=== PATIENT | female | born 1975 | race Caucasian/White ===

== ENCOUNTER → 2018-05-24 08:14 | Outpatient (CLI) | payer MEDICAID ==
[2012-03-21 08:38] VITALS: BMI 32.9
== END | disposition home or self-care (01) ==
LOC: D.HCCARDIO 08:14
DX: I20.9 Angina pectoris, unspecified (principal)

== ENCOUNTER 2019-01-02 05:00 | Inpatient (IN) | payer MEDICAID ==
[2019-01-01 12:37] LABS: BASOPHILS 0.3 % (0-2); EOSINOPHILS 1.3 % (0-7); HEMATOCRIT 41.5 % (36.0-48.0); HEMOGLOBIN 13.4 g/dL (12-16); IMMATURE GRANULOCYTES 0.3 % (0-5); LYMPHOCYTES 18.3 % (15-50); MCH 27.9 pg (26.0-34.0); MCHC 32.3 g/dL (31.0-37.0); MCV 86.5 fL (80.0-100.0); MEAN PLATELET VOLUME 10.1 fL (7.4-10.4); MONOCYTES 3.9 % (2-11); NEUTROPHILS 75.9 % (40-80); PLATELET COUNT 272 10x3/uL (130-400); RDW 16.5 % (11.5-14.5); WBC 11.9 10x3/uL (4.8-10.8)
[2019-01-01 12:49] LABS: CALC OSMOLALITY 274 mosm/kg (275-300); CALCIUM 9.6 mg/dL (8.5-10.1); CARBON DIOXIDE 25.9 mmol/L (21.0-32.0); CHLORIDE - SERUM 96 mmol/L (98-107); CREATININE - SERUM 0.8 mg/dL (0.6-1.3); POTASSIUM - SERUM 3.9 mmol/L (3.5-5.1); SODIUM 133 mmol/L (136-145); UREA NITROGEN 11 mg/dL (7-18); eGFR NON AFRICAN AMERICAN 83 mL/min (90-120)
[2019-01-01 12:50] LABS: GLUCOSE 271 mg/dL (74-106)
[~2019-01-02] VITALS: Ht 167.6 cm; Wt 94.8 kg
[2019-01-02] VITALS (10 sets, daily range): BP systolic 93–109; BP diastolic 50–74; BMI 33.9; BMI 33.8
[~2019-01-02 05:00] MED LIST: GLUCOPHAGE XR750 MG PO; LOSARTAN/HCTZ PO; NORVASC5 MG PO; OXYBUTYNIN CHLOR5 MG PO; TENORMIN25 MG PO
[2019-01-02 06:01] LABS: HCG URINE NEGATIVE (NEGATIVE)
--- NOTE | 2019-01-02 11:57 | NUR ---
DISCHARGE FROM PACU PER ANESTHESIA, FSBG TRENDING DOWN. 322 AT [phone]
--- NOTE | 2019-01-02 12:14 | NUR ---
RECEIVED PT VIA BED FROM RR, PT TO ROOM 1220, VS INITIATED, IV IN RIGHT WRIST INTACT WITH NO REDNESS OR EDEMA, NS TO PUMP TO KVO AT THIS TIME, PT CLEANED UP WITH WET WARM WASH CLOTHS, WHITE CHUX CHANGED, EMPTIED 400 MLS OF METHYLINE BLUE URINE FROM GIL CATH, O2 AT 4L VIA NC, SCD'S CONNECTED AND WORKING PROPERLY, PT INST ON AND DEMONSTRATED I.S. WITH GOOD EFFORT, INFORMED PT THAT I WILL BE RIGHT BACK, PT VERBALIZES UNDERSTANDING, SPOUSE AT BEDSIDE
--- NOTE | 2019-01-02 12:24 | NUR ---
DR INMAN CALLS UNIT REGARDING PT, ORDERS RECEIVED TO DUE FSBS Q1H, LOW RESIDUAL SLIDING SCALE Q2H, CALL HER WITH ANY QUESTIONS OR CONCERNS, ORDERS READ BACK AND VERIFIED
--- NOTE | 2019-01-02 13:01 | NUR ---
NEW BAG OF LR HUNG PER MD ORDERS, SEE EMAR
--- NOTE | 2019-01-02 13:05 | NUR ---
ASSESSMENT CONTINUED PER FLOW SHEET, [employer] ORALIA WITH LARGE DRESSING CDI WITH NO DRAINAGE NOTED, ICE PACK TO ABD, SMALL SPLINT PILLOW PROVIDED, PT ORIENTED TO ROOM, BED IN LOW POSITION, SIDE RAILS X 2, CALL LIGHT IN REACH, SPOUSE AT BEDSIDE
--- NOTE | 2019-01-02 13:44 | NUR ---
PT RATES INC PAIN 10/10, ADM MORPHINE DILUTED IN 5MLS OF NS, SIVP OVER 2.5 MINS, SEE EMAR
--- NOTE | 2019-01-02 13:56 | NUR ---
DR INMAN CALLS UNIT, REPORT OF PT'S FSBS, VERIFIED ORDERS, DR INMAN REPORTS THAT SHE WILL COME SEE PT THIS AFTERNOON, CALL HER WHEN BLOOD SUGAR IS BELOW 200, AND THAT SHE WILL PROBABLY CHANGE THE FSBS Q1H TO Q4H, AND THAT YOU CAN CALL HER TONIGHT WITH ANY CONCERNS OR QUESTIONS
--- NOTE | 2019-01-02 14:02 | NUR ---
PT AWAKE, PT INFORMED THAT I SPOKE TO DR INMAN, PT VERBALIZES UNDERSTANDING, ADM INSULIN PER THIS RN AND WESLY CAST, RN, PT REQUESTS SNACK, DENIES ANY NAUSEA AT THIS TIME, SPOUSE AT BEDSIDE
--- NOTE | 2019-01-02 14:10 | NUR ---
PT SERVED H20 AND CHICKEN BROTH, DENIES FURTHER NEEDS
--- NOTE | 2019-01-02 15:11 | NUR ---
PT RESTING WITH EYES CLOSED, AROUSES TO SOFT VERBAL STIMULATION, OBTAINED FSBS, PT DENIES ANY NAUSEA AFTER DRINKING H20 AND CHICKEN BROTH, PT REQUESTED AND SERVED DIET DR NGUYEN, SCD'S CONTINUE ON AND WORKING PROPERLY, PT DENIES FURTHER NEEDS, SPOUSE AT BEDSIDE
--- NOTE | 2019-01-02 16:00 | NUR ---
VS OBTAINED AND I&O'S COLLECTED
--- NOTE | 2019-01-02 16:18 | NUR ---
THIS RN AND GIOVANNI ROACH, RN ADM INSULIN PER MD ORDERS, SEE EMAR, ADM TORADOL SIVP PER MD ORDERS, INFORMED PT THAT I WILL CALL DR INMAN TO INFORM HER OF BS
--- NOTE | 2019-01-02 16:30 | NUR ---
DR INMAN NOTIFIED, REPORT OF FSBS AND OUTPUT, ORDERS RECEIVED, READ BACK AND VERIFIED
--- NOTE | 2019-01-02 16:55 | NUR ---
DR INMAN TO ROOM
--- NOTE | 2019-01-02 17:08 | NUR ---
NS BOLUS STARTED PER MD ORDERS, SEE EMAR, DR INMAN OUT OF ROOM AT THIS TIME, PT RATES INC PAIN 09/10, INFORMED PT THAT I WILL ADM PAIN MED WHEN DUE, PT VERBALIZES UNDERSTANDING, DENIES NEEDS AT THIS TIME
--- NOTE | 2019-01-02 18:10 | NUR ---
ADM MORPHINE PER MD ORDERS, SEE EMAR, PT DENIES FURTHER NEEDS, SPOUSE AT BEDSIDE
--- NOTE | 2019-01-02 18:50 | NUR ---
PT AROUSES TO ME IN ROOM, RATES INC PAIN 5/, SCD'S CONTINUE ON AND WORKING PROPERLY, DENIES NEEDS AT THIS TIME, SPOUSE AT BEDSIDE
--- NOTE | 2019-01-02 19:00 | NUR ---
SHIFT REPORT TO ON COMING SHIFT
--- NOTE | 2019-01-02 19:10 | NUR ---
PM ASSESSMENT COMPLETE CHARTED ON FLOWSHEET. PT RATES PAIN AT 5/10 TO INCISION SITE, NEW ICE BAG PLACED AT SITE. DRESSING C/D/I. SCDS ON. NS BOLUS COMPLETED, LR AT 125 RESTARTED. IV PATENT. STAT LOCK REPLACED ON LEFT UPPER LEG, 120CC LIGHT GREEN URINE EMPTIED FROM BAG. THIS RN ENCOURAGED PT TO DRINK FLUIDS TO PROMOTE URINE OUTPUT. PT STATED SHE IS USING INCENTIVE SPIROMETER DURING WAKE HOURS. ENCOURAGED PT TO TURN, COUGH AND DEEP BREATH. FAMILY AT BEDSIDE. PT DENIES ALL OTHER NEEDS AT THIS TIME. SRUPX2, CALL LIGHT AND PHONE WITHIN REACH.
--- NOTE | 2019-01-02 20:30 | NUR ---
FSBS 132, NO INSULIN NEEDED AT THIS. SEE EMAR
--- NOTE | 2019-01-02 21:30 | NUR ---
PT RATES PAIN AT INCISION SITE AT 8, SEE EMAR FOR RESORT HOST. NEW BAG OF LR HUNG AT THIS TIME. 150CC LIGHT GREEN URINE EMPTIED FROM GIL BAG. PT POSITIONED RIGHT SIDE. ENCOURAGED TO COUGH AND DEEP BREATH AND USE OF INCENTIVE SPIROMETER. PT DENIES ALL OTHER NEEDS AT THIS TIME. FAMILY AT BEDSIDE. SRUPX2, CALL LIGHT AND PHONE WITHIN REACH.
--- NOTE | 2019-01-02 22:05 | NUR ---
ROUNDING COMPLETED BY THIS RN. PT ASLEEP, EASILY AROUSED. PT STATES PAIN IS NOW A 2/10, PAIN MEDICATION EFFECTIVE. PT DENIES ALL OTHER NEEDS AT THIS TIME. SRUPX2, CALL LIGHT AND PHONE WITHIN REACH.
[2019-01-03 00:10] VITALS: BP 104/70
--- NOTE | 2019-01-03 00:10 | NUR ---
ROUNDING COMPLETED BY THIS RN. FSBS 156, 2 UNITS INSULIN ADMINISTERED, SEE EMAR. VSS. PT REQUESTED CHICKEN BROTH, PROVIDED BY THIS RN. DENIES NAUSEA WITH CLEAR LIQUID DIET. PT POSITIONED TO LEFT SIDE, WEAK COUGH, ENCOURAGED TO DEEP BREATH AND USE INCENTIVE SPIROMETER. PT C/O INCISION PAIN. THIS RN EXPLAINED NEXT DOSE OF PAIN MED DUE AT 2AM, PT STATED UNDERSTANDING. NEW ICE PACK APPLIED TO INCISION AREA. FAMILY AT BEDSIDE. SRUPX2, CALL LIGHT AND PHONE WITHIN REACH.
--- NOTE | 2019-01-03 02:31 | NUR ---
ROUNDING COMPLETED BY THIS RN. PT C/O PAIN AT INICISION SITE 10/10. SEE EMAR FOR MORPHINE ADMIN. 150CC LIGHT GREEN URINE EMPTIED FROM GIL. PT DENIES ALL OTHER NEEDS AT THIS TIME. SRUPX2, CALL LIGHT AND PHONE WITHIN REACH.
--- NOTE | 2019-01-03 03:20 | NUR ---
ROUNDING COMPLETED BY THIS RN. PT SLEEPING WITH FAMILY AT BEDSIDE. RESPIRATIONS EVEN AND UNLABORED, NO DISTRESS NOTED. SRUPX2, CALL LIGHT AND PHONE WITHIN REACH.
[2019-01-03 04:00] VITALS: BP 94/62
--- NOTE | 2019-01-03 04:33 | NUR ---
ROUNDING COMPLETED BY THIS RN. PT C/O PAIN AT [facility] SITE 10/10, SEE EMAR FOR TORADOL ADMIN. FSBS 168, 2 UNITS INSULIN GIVEN. VSS. TEMP OF 99.2, ENCOURAGED TO TURN, COUGH, AND DEEP BREATH AND USE OF INCENTIVE SPIROMETER DURING WAKING HOURS. PT DENIES ALL OTHER NEEDS AT THIS TIME. SRUPX2, CALL LIGHT AND PHONE WITHIN REACH.
--- NOTE | 2019-01-03 05:00 | NUR ---
ROUNDING COMPLETED BY THIS RN. PT SLEEPING, RESPIRATIONS EVEN AND UNLABORED, NO DISTRESS NOTED. SRUPX2, CALL LIGHT AND PHONE WITHIN REACH.
--- NOTE | 2019-01-03 06:16 | NUR ---
ROUNDING COMPLETED BY THIS RN. NEW BAG OF LR HUNG AT 125MLS/HR. GIL EMPTIED WITH 200CC LIGHT GREEN URINE. PT RESTING QUIETLY. DENIES ALL NEEDS AT THIS TIME. FAMILY AT BEDSIDE. SRUPX2, CALL LIGHT AND PHONE WITHIN REACH.
--- NOTE | 2019-01-03 07:00 | NUR ---
SBAR HANDOFF RECEIVED FROM Jer ROD RN. PATIENT REMAINS STBLE IN BED WITH NO SIGNS OF RESP DISTRESS; 02 CONT AT 2L/M PER NASAL CANNULA. IV PATENT TO RIGHT HAND. GIL WITH SCANT URINE IN BAG AND TUBING. ABD DSG CDI. S.O. AT BEDSIDE.
[2019-01-03 07:20] VITALS: BP 97/72
--- NOTE | 2019-01-03 07:20 | NUR ---
PATIENT AWAKE AND ASKING FOR PAIN MED. O2 SAT 94-95% WITH O2 CONT AT 2L/MIN PER NASAL CANNULA. BBS = AND CTA. BOWEL SOUNDS PRESENT. BED MOBILITY MINIMAL. SKIN WARM DRY AND PINK. SCD BLE ON/INTERMITTENT. GIL WITH CLEAR LIGHT GREENISH BLUE URINE. FERRARA. IV TO RIGHT HAND INTACT WITH SWELLING NOTED TO RIGHT HAND AND ARM BUT WITH GOOD BLOOD RETURN. LR CONT AT 125ML/HR PER IV PUMP; NO REDNESS OR DRNG AT SITE. ABD DSG CDI.
--- NOTE | 2019-01-03 07:50 | NUR ---
DR Rosie INMAN AT BEDSIDE AND STATES OK TO DC O2, GIVE 1L NACL BOLUS IV THEN DC CATH IF UOP ADEQUATE AFTER 1 HR; TO SHOWER AND TO WALK IN HALLS. DR INMAN REMOVED ABD DSG NOTING LOGAN INTACT WITH NO REDNESS, SWELLING, DRNG OR FEVER NOTED.
[2019-01-03 07:52] LABS: BASOPHILS 0.3 % (0-2); EOSINOPHILS 0.7 % (0-7); HEMATOCRIT 33.3 % (36.0-48.0); IMMATURE GRANULOCYTES 0.3 % (0-5); LYMPHOCYTES 14.9 % (15-50); MCH 27.8 pg (26.0-34.0); MCHC 30.6 g/dL (31.0-37.0); MEAN PLATELET VOLUME 10.1 fL (7.4-10.4); MONOCYTES 5.6 % (2-11); NEUTROPHILS 78.2 % (40-80); RDW 17.1 % (11.5-14.5); WBC 11.9 10x3/uL (4.8-10.8)
[2019-01-03 07:54] LABS: HEMOGLOBIN 10.2 g/dL (12-16); MCV 90.7 fL (80.0-100.0); PLATELET COUNT 205 10x3/uL (130-400); RBC 3.67 10x6/uL (4.00-5.40)
--- NOTE | 2019-01-03 09:15 | NUR ---
CATH REMOVED NOTING 100ML IN TUBING AND BAG. IV SALINE LOCKED. ASSISTED TO SHOWER THEN TO CHAIR TO EAT REG DIET BREAKFAST. BEATRIZ WELL.
[2019-01-03 10:17] LABS: ANION GAP 13.5 mmol/L (8-16); CARBON DIOXIDE 24.9 mmol/L (21.0-32.0); CREATININE - SERUM 0.9 mg/dL (0.6-1.3); POTASSIUM - SERUM 3.4 mmol/L (3.5-5.1)
--- NOTE | 2019-01-03 11:30 | NUR ---
VOIDED 100ML IN HAT IN TOILET. UP AND ABOUT IN ROOM. S.O. AT BEDSIDE.
--- NOTE | 2019-01-03 12:00 | NUR ---
SITTING UP IN CHAIR FOR LUNCH. NO SIGNS OF DISTRESS.
[2019-01-03 12:30] VITALS: BP 115/69
--- NOTE | 2019-01-03 14:00 | NUR ---
VOIDED 100ML LIGHT GREEN URINE. COMPLAINS OF GAS PAIN. STATES SHE HAS PASSED GAS RECTALLY A FEW TIMES TODAY
--- NOTE | 2019-01-03 14:15 | NUR ---
AMBULATING IN HALLS > 400 FT. BEATRIZ WELL. REPORTS PASSAGE OF GAS RECTALLY. NO SIGNS OF DISTRESS.
--- NOTE | 2019-01-03 15:15 | NUR ---
REMAINS STABLE. NO SIGNS OF DISTRESS. UP AND ABOUT IN ROOM. REPORTS PASSAGE OF GAS RECTALLY. FAMILY MEMBER AT BEDSIDE. DENIES NAUSEA. BEATRIZ REG DIET WELL.
--- NOTE | 2019-01-03 16:45 | NUR ---
VOIDED 200ML LIGHT GREENISH URINE. INSTRUCTED TO CONTINUE VOIDING IN RECEPTACLE UNTIL VOIDING AMT'S ARE INCREASED. UP AND ABOUT IN ROOM AND COPPOLA. COMPLAINS OF GAS PAIN.
--- NOTE | 2019-01-03 16:45 | NUR ---
phoned valerie [place]ccaule[place] in [place] and she states that will need more specific md for consult for internal med. report of this to dr berkowitz and she states to call geovanny godl md. spoke with valerie mccauley in [place] again and she states that would be dr vega. pt states that her family practive md is in [facility]. and does not practice here.
--- NOTE | 2019-01-03 16:58 | NUR ---
notified dr vega of consult. report given -he states he will send nurse practitioner over to see her and he will see her within hour or so.
--- NOTE | 2019-01-03 18:00 | NUR ---
DR COBOS TO BEDSIDE. UPDATED ON PATIENT CONDITION. PATIENT REMAINS STABLE WITH NO SIGNS OF DISTRESS. SITTING UP IN BED VISITING WITH VISITORS
--- NOTE | 2019-01-03 18:00 | NUR ---
DR DEL ROSARIO AT BEDSIDE. UPDATED ON INFANT CONDITION.
--- NOTE | 2019-01-03 18:40 | NUR ---
PATIENT COMPLAINS OF IV RIGHT HAND/WRIST HURTING. SALINE LOCK DISCONTINUED; NO REDNESS OR DRNG AT SITE; MILD SWELLING TO HAND AND LOWER ARM; 1 MIN PRESSURE HELD THEN BANDAID APPLIED.
[2019-01-03 19:30] VITALS: BP 111/69
--- NOTE | 2019-01-03 19:30 | NUR ---
PM ASSESSMENT COMPLETE AT CHARTED ON FLOWSHEET. PT RATES PAIN AT INICISION SITE 10/10, SEE EMAR FOR WORKFORCE PLANNER. PT SITTING ON COUCH WATCHING TV WITH FAMILY, SCDS OFF, PT STATES USING INCENTIVE SPIROMETER. FSBS 246, 2 UNITS GIVEN PER SLIDING SCALE. INCISION COVERED WITH CLARITZA PAD, NO DRAINAGE, NO SIGNS/SYMPTOMS OF INFECTION TO INCISION NOTED. ICE PROVIDED AT PT REQUEST. EDUCATED PT ON SAVING URINE FOR THIS RN TO OBSERVE, PT STATES UNDERSTANDING. SRUPX2, CALL LIGHT AND PHONE WITHIN REACH.
--- NOTE | 2019-01-03 20:40 | NUR ---
PT IN WHEELCHAIR IN HALLWAY. PT RATES PAIN 5/10 AT INCISION SITE. STATES PAIN MED WAS EFFECTIVE. DENIES ALL OTHER NEEDS AT THIS TIME.
--- NOTE | 2019-01-03 21:22 | NUR ---
ROUNDING COMPLETED BY THIS RN. PT REQUESTS NICOTINE PATCH. SEE EMAR FOR PATTERNMAKER PLASTER. PT ON COUCH WATCHING TV WITH FAMILY. RATES PAIN AT INICISION SITE 06/10. FRESH ICE PROVIDED AT PT REQUEST. THIS NURSE ENCOURAGED USE OF INCENTIVE SPIROMETER.
--- NOTE | 2019-01-03 22:14 | NUR ---
PT RATES PAIN AT 3/10. PT RESTING IN BED WITH FAMILY AT BEDSIDE. DENIES ALL OTHER NEEDS AT THIS TIME. SRUPX2, CALL LIGHT AND PHONE WITHIN REACH.
[2019-01-03 23:30] VITALS: BP 105/65
--- NOTE | 2019-01-03 23:30 | NUR ---
PT IN BED RESTING. VSS. URINE COLLECTION EMPTIED, 200CC LIGHT GREEN. PT C/O INCISION PAIN AT 8/10, SEE EMAR FOR PAIN SALES ENGAGEMENT MANAGER. FSBS 194, 2 UNITS ADMIN PER SLIDING SCALE. ENCOURAGED PT TO CONTINUE INCENTIVE SPIROMETER DURING WAKE HOURS, PT STATED UNDERSTANDING. CHICKEN BROTH PROVIDED AT PT REQUEST. SCDS ON. PT DENIES ALL OTHER NEEDS. FAMILY AT BEDSIDE. SRUPX2, CALL LIGHT AND PHONE WITHIN REACH.
--- NOTE | 2019-01-04 00:48 | NUR ---
ROUNDING COMPLETED BY THIS RN. PT SLEEPING. RESPIRATIONS EVEN AND UNLABORED. SRUPX2, CALL LIGHT AND PHONE WITHIN REACH.
--- NOTE | 2019-01-04 02:15 | NUR ---
ROUNDING COMPLETED BY THIS RN. PT SLEEPING. RESPIRATIONS EVEN AND UNLABORED, NO DISTRESS NOTED. FAMILY AT BEDSIDE. SRUPX2, CALL LIGHT AND PHONE WITHIN REACH.
--- NOTE | 2019-01-04 04:18 | NUR ---
ROUNDING COMPLETED BY THIS RN. PT C/O OF PAIN IN ABDOMEN 11/10, SEE EMAR. ICE WATER PROVIDED AT PT REQUEST. FBSB 195, 2 UNIT GIVEN PER SLIDING SCALE, SEE EMAR. FAMILY AT BEDSIDE. PT DENIES ALL OTHER NEEDS AT THIS TIME. SRUPX2, CALL LIGHT AND PHONE WITHIN REACH.
--- NOTE | 2019-01-04 05:16 | NUR ---
ROUNDING COMPLETED BY THIS RN. PT RATES ABDOMINAL PAIN AT 4/10, SEE EMAR FOR TORADOL ADMIN. 250 LIGHT GREEN URINE EMPTIED. DRESSING C/D/I. FAMILY AT BEDSIDE. PT DENIES ALL OTHER NEEDS AT THIS TIME. SRUPX2, CALL LIGHT AND PHONE WITHIN REACH.
--- NOTE | 2019-01-04 06:11 | NUR ---
ROUNDING COMPLETED BY THIS RN. PT SLEEPING. RESPIRATIONS EVEN AND UNLABORED. FAMILY AT BEDSIDE. SRUPX2, CALL LIGHT AND PHONE WITHIN REACH.
--- NOTE | 2019-01-04 08:00 | NUR ---
FSBS 196, 2 UNITS REGULAR INSULIN GIVEN SEEN ON EMAR. PT COMPLAINS OF ABDOMINAL PAIN THAT SHE STATES IS "JUST ABOVE INCISION" ENCOURAGED HER TO WALK TO HELP PASS GAS, SHE STATES SHE HAS BEEN UP WALKING BUT NOT OUT OF HER ROOM. RATES PAIN AT 8/10, PAIN MED GIVEN REQUESTED CHARTED ON EMAR. ASSESSMENT COMPLETED CHARTED ON FLOWSHEET. PROVIDED WITH MESH BRIEFS AND CLARITZA PADS, DENIES ANY OTHER NEEDS AT THIS TIME. SIDE RAILS UP X 2 WITH PHONE AND CALL LIGHT IN REACH.
[2019-01-04 08:30] VITALS: BP 113/73
--- NOTE | 2019-01-04 08:36 | NUR ---
DR INMAN IN TO SEE PT FOR AM ROUNDS. PER PT UNDERSTANDS SHE IS TO WALK IN HALLS, POSSIBLE DISCHARGE LATER TODAY.
--- NOTE | 2019-01-04 09:45 | NUR ---
PT UP AND WALKING IN HALLS WITH FAMILY MEMBER. CONTINUE TO RATE PAIN AT 5/10.
[2019-01-04 11:36] LABS: BASOPHILS 0.1 % (0-2); EOSINOPHILS 0.7 % (0-7); HEMATOCRIT 37.7 % (36.0-48.0); HEMOGLOBIN 11.5 g/dL (12-16); IMMATURE GRANULOCYTES 0.5 % (0-5); LYMPHOCYTES 10.8 % (15-50); MCH 27.6 pg (26.0-34.0); MCHC 30.5 g/dL (31.0-37.0); MCV 90.4 fL (80.0-100.0); MEAN PLATELET VOLUME 9.9 fL (7.4-10.4); MONOCYTES 2.4 % (2-11); NEUTROPHILS 85.5 % (40-80); PLATELET COUNT 216 10x3/uL (130-400); RBC 4.17 10x6/uL (4.00-5.40); RDW 17.2 % (11.5-14.5)
[2019-01-04 11:54] LABS: ANION GAP 17.2 mmol/L (8-16); CALCIUM 7.2 mg/dL (8.5-10.1); CARBON DIOXIDE 20.6 mmol/L (21.0-32.0); CREATININE - SERUM 1.1 mg/dL (0.6-1.3); POTASSIUM - SERUM 3.8 mmol/L (3.5-5.1)
--- NOTE | 2019-01-04 12:08 | NUR ---
FSBS 178, PT UNDERSTANDS SHE WILL RECEIVED INSULIN. C/O ABD PAIN/CRAMPING THAT SHE RATES AT 9/10. ABDOMINAL BINDER PLACED ON PER PT AGREEMENT SHE STATES IMMEDIATE RELIEF OF PRESSURE ON INCISION. ENCOURAGED TO WALK IN HALLS IF SHE FEELS BETTER. FAMILY AT BEDSIDE.
--- NOTE | 2019-01-04 12:30 | NUR ---
PAIN MED GIVEN PER EMAR. DR INMAN ROUNDS AND TALKS WITH PT ABOUT DISCHARGE AND FOLLOW WITH PRIMARY MD SOON POSSIBLE TO CONTROL BLOOD SUGAR.
--- NOTE | 2019-01-04 13:45 | NUR ---
PAIN REASSESSMENT, PT TURNED TO LEFT SIDE WITH EYES CLOSED AND RESP EVEN, NO SIGNS OF DISTRESS NOTED. SIDE RAILS UP X 2 WITH CALL LIGHT IN REACH. SPOUSE AT BEDSIDE.
[2019-01-04 13:49] VITALS: Ht 167.6 cm; Wt 94.8 kg
--- NOTE | 2019-01-04 14:30 | NUR ---
PT CALLS OUT EMERY WHEEL MOLDER LIGHT WITH REQUEST FOR TOWELS AND BED LINENS. THIS RN TO ROOM. PT STATES SHE COUGHED AND VOIDED ON BED, IS GETTING UP TO SHOWER. PT TO SHOWER WITH ASSIST FROM SIG OTHER. PT PROVIDED WITH TOWELS AND CLEAN GOWN, STATES SHE HAS OWN SOAPS. BED LINENS CHANGED. PT OUT OF SHOWER AND ASSISTED TO DRESS BY SIG OTHER. PT AMBULATING IN ROOM, DENIES FURTHER NEEDS. WILL CONT TO MONITOR.
--- NOTE | 2019-01-04 18:09 | NUR ---
ROUNDS MADE, PT IS AWAKE SITTING UP IN BED WHILE WATCHING TV. ABDOMEN SOFT TO TOUCH AND PT STATES THAT SHE DOES FEEL BETTER YET RATES HER PAIN AT 7/10. PAIN MED GIVEN PER REQUEST SCANNED TO EMAR. SPOUSE AT BEDSIDE, CALL LIGHT IN REACH.
--- NOTE | 2019-01-04 18:30 | NUR ---
DR INMAN CALLS WITH DISCHARGE ORDERS.
--- NOTE | 2019-01-04 18:45 | NUR ---
PLAN OF CARE GONE OVER WITH PT, SHE IS AGREEABLE TO DISCHARGE. DENIES QUESTIONS OR CONERNS AT THIS TIME.
[2019-01-04] MEDS ORDERED: PERCOCET 5-3251 TAB PO (18:50)
--- NOTE | 2019-01-04 19:23 | NUR ---
DISCHARGE INSTRUCTIONS REVIEWED WITH PATIENT AT THIS TIME. OPPORTUNITY FOR QUESTIONS GIVEN. DISCHARGE INSTRUCTIONS SIGNED AND COPIES GIVEN TO PATIEN. PRESCRIPTIONS FOR PERCOCET, GLUCOMETER, LANCETS, AND STRIPS ALSO GIVEN TO PATIENT. PT INFORMED OF FOLLOW UP APPOINTMEMTS WITH DR INMAN FOR STAPLE REMOVAL AND POST OP VIST AND UNDERSTANDING VERBALIZED. PT INSTRUCTED TO CALL WHEN SHE WAS DRESSED FOR DISCHARGE. Sherry GARSIA RN
--- NOTE | 2019-01-04 19:40 | NUR ---
PT TO PERSONAL VEHICLE BY WHEELCHAIR FOR DISCHARGE. NO DISTRESS NOTED. Sherry GARSIA. RN
--- NOTE | 2019-01-07 13:13 | OP ---
PATIENT NAME: CLOVIS BOOTH MEDICAL RECORD: [id number] :75 LOCATION:[id number] ADMISSION DATE:01/02/19 SURGEON: ROMERO INMAN DO DATE OF OPERATION: 01/02/2019 PREOPERATIVE DIAGNOSES: Endometriosis and chronic pelvic pain. POSTOPERATIVE DIAGNOSES: Endometriosis, chronic pelvic pain, extensive intra-abdominal adhesions. PRIMARY SURGEON: Richard De La Vega MD WHITEWATER RAFTING GUIDE SURGEON: Romero Inman DO ANESTHESIOLOGIST: Ramiro Castañeda CRNA. PROCEDURE: Diagnostic laparoscopy converted to open total abdominal hysterectomy, right salpingectomy, left partial salpingectomy and cystoscopy. FINDINGS: External intra-abdominal adhesions including adhesions of omentum to anterior abdominal wall and fibrotic adhesions of bladder to anterior uterus due to blood-tinged urine and cystoscopy was performed. The dome of the bladder had mild bruising, no lacerations. Normal ureteral jets noted bilaterally. SPECIMENS: Uterus, right fallopian tube, partial left fallopian tube and cervix. ESTIMATED BLOOD LOSS: 200 cc. IV FLUIDS: 1700 cc. URINE OUTPUT: 100 cc blood-tinged urine. COMPLICATIONS: None. CONDITION: Stable. PROCEDURE: The risks, benefits, alternatives and indications of the procedure were discussed with the patient. She voiced understanding of the procedure and signed the consent. DESCRIPTION OF PROCEDURE: She was taken to the OR where general anesthesia was administered and found to be adequate. She was placed in the dorsal lithotomy position. She was prepped and draped in the normal sterile fashion. A speculum was placed in the posterior aspect of the vagina and a single tooth tenaculum was used to grasp the anterior lip of the cervix. The uterus was sounded to 10 cm. The cervix was further dilated to accommodate the VCare uterine manipulator. The uterine manipulator was placed and the tenaculum was removed from the vagina. The speculum was removed from the vagina. Gloves were changed and attention was turned to the abdomen. The abdomen was elevated and a 5-mm incision was created in the umbilicus after Marcaine placement. A 5-mm port was placed with direct laparoscopic guidance. The pneumoperitoneum was achieved to 15 mmHg. Extensive intra-abdominal adhesions were noted, especially adhesions of the omentum to the anterior abdominal wall; however, right lower quadrant port was able to be placed under direct laparoscopic visualization. At that OPERATIVE REPORT [id number] QUICK,CLOVIS JENIFFER time, due to extensive intra-abdominal adhesions, decision was made to perform an open total hysterectomy. The pneumoperitoneum was released from the abdomen. The VCare manipulator was removed from the cervix and the uterus, and the ports were removed from the abdomen. A Pfannenstiel skin incision was made with the scalpel and carried down to the underlying layer of the fascia with the Bovie. The fascia was incised in the midline and extended laterally. The inferior aspect of the fascial incision was grasped with Danny clamps and the rectus muscle was dissected off sharply. Attention was then turned to the superior aspect of the fascial incision. The rectus muscle was dissected off in a similar fashion. The rectus muscle was in the midline down to the level of the peritoneum. The peritoneum was grasped with 2 Allises noted to be free of adherent bowel and entered with Metzenbaum scissors. The peritoneum was further with a combination of gentle traction and blunt and sharp dissection. The patient was placed in Trendelenburg position and the bowel was packed away using moist laparotomy sponges. The uterus was grasped along the cornu of the uterus. Upward traction was applied to facilitate exposure and dissection. The round ligament on the left side was identified, grasped with a Krystina suture, ligated and cut with the Bovie. The anterior leaf of the broad ligament was dissected to the midline and the vesicouterine peritoneum. The bladder was dissected off the lower uterine segment and cervix with Metzenbaum scissor. A window was created in the avascular area of the posterior leaf. The ovarian ligament and partial fallopian tube was clamped, cut and doubly ligated, unable to perform complete salpingectomy due to adhesive disease. The uterine vessels were skeletonized, doubly clamped and cut. The pedicles were suture ligated and good hemostasis was noted. The entire procedure was repeated on the right side. At that time, the cardinal ligament and uterosacral ligaments were sequentially clamped, cut and suture ligated. Curved Z clamps were placed at the angles of the vagina. The cervix was removed from the vaginal cuff with scissors. The vaginal angle was closed with [id number] 0 Vicryl sutures and tied to the uterosacral ligament to provide support to the vaginal cuff. The vaginal cuff was then closed with [id number] 0 Vicryl sutures and good hemostasis was noted. The pelvis was irrigated with warm sterile saline. Due to extensive intra-abdominal adhesions and adhesions of the bladder to the anterior part of the uterus, decision was made for cystoscopy and methylene blue was given. The patient was taken out of Trendelenburg position. All the instruments were removed from the abdomen after hemostasis was noted to be adequate. Jose Daniel was placed at the vaginal cuff. The rectus muscle was closed with 2-0 chromic suture. The fascial incision was closed with 2-0 PDS looped suture with good hemostasis. The subcutaneous fat was closed with 2-0 plain suture with good hemostasis. The skin was closed with maggy. The umbilical and right lower quadrant port sites were closed with 3-0 Monocryl with good hemostasis and Dermabond covering. At that time, attention was then turned to the cystoscopy. The Snowden was removed and the cystoscope was inserted into the urethra and bladder. Good ureteral jets were noted bilaterally. Small amount of bruising noted at the dome of the fundus; however, no lacerations were noted. The cystoscope was removed and the Snowden was replaced. The patient tolerated the procedure well. She was awakened and taken to recovery room in stable condition. TRANSINT:[id number] Voice Confirmation ID: [id number] DOCUMENT ID: [id number] OPERATIVE REPORT [id number] CLOVIS BOOTH REBECCA DO at 1313 CC: [id number] DICTATION DATE: 01/04/19 1200 MOWER SHARPENER: 01/04/19 1319 DIS IN 01/04/19 [id number] [place] [address]
--- NOTE | 2019-02-04 09:25 | OP ---
PATIENT NAME: CLOVIS BOOTH MEDICAL RECORD: [id number] :75 LOCATION:[id number] ADMISSION DATE:01/02/19 SURGEON: RICHARD MCCLURE MD DATE OF OPERATION: 01/02/2019 This is a before dictated operative note by Dr. Ham with Dr. Mcclure is the primary. PREOPERATIVE DIAGNOSES: Endometriosis and chronic pelvic pain. POSTOPERATIVE DIAGNOSES: Endometriosis, chronic pelvic pain, extensive intra-abdominal adhesions. PRIMARY SURGEON: Richard Mcclure MD CLOUD SOFTWARE ENGINEER SURGEON: Karen Ham DO ANESTHESIOLOGIST: Ramiro Castañeda CRNA ANESTHETIC: General. PROCEDURES: Diagnostic laparoscopy converted to an open total abdominal hysterectomy, right salpingectomy, left partial salpingectomy, and cystoscopy. FINDINGS: External intraabdominal adhesions including adhesions of omentum to anterior abdominal wall and fibrotic adhesions of bladder to anterior uterus due to blood-tinged urine, cystoscopy was performed. The dome of the bladder had mild bruising, no lacerations. Normal ureteral jets noted bilaterally. SPECIMENS: Uterus, right fallopian tube, partial left fallopian tube, and cervix. ESTIMATED BLOOD LOSS: 200 cc. IV FLUIDS: 1700 cc. URINE OUTPUT: 100 cc of blood-tinged urine. COMPLICATIONS: None. CONDITION: Stable. The risks, benefits, alternatives, and indications of the procedure were discussed with the patient. She voiced understanding of the procedure and signed the consent. DESCRIPTION OF PROCEDURE: She was taken to the OR where general anesthesia was administered and found to be adequate. She was placed in the dorsal lithotomy position. She was prepped and draped in the normal sterile fashion. A speculum was placed in the posterior aspect of the vagina and a single tooth tenaculum was used to grasp the anterior lip of the cervix. The uterus was sounded to 10 cm. The cervix was further dilated to accommodate the VCare uterine manipulator. The uterine manipulator was placed and the tenaculum was removed from the vagina. The tenaculum was removed from the vagina. Gloves were changed and attention was turned to the abdomen. The abdomen was elevated and a OPERATIVE REPORT [id number] CLOVIS BOOTH 5-mm incision was created in the umbilicus after Marcaine placement. A 5-mm port was placed with direct laparoscopic guidance. The pneumoperitoneum was achieved to 15 mmHg. Extensive intra-abdominal adhesions were noted, especially adhesions of the omentum to the anterior abdominal wall; however, right lower quadrant port was able to be placed under direct laparoscopic visualization. At that time, due to extensive intraabdominal adhesions, decision was made to perform an open total hysterectomy. The pneumoperitoneum was released from the abdomen. The VCare manipulator was removed from the cervix and the uterus, and the ports were removed from the abdomen. A Pfannenstiel skin incision was made with the scalpel and carried down to the underlying layer of the fascia with the Bovie. The fascia was incised in the midline and extended laterally. The inferior aspect of the fascial incision was grasped with Danny clamps and the rectus muscle was dissected off sharply. Attention was then turned to the superior aspect of the fascial incision. The rectus muscle was dissected off in similar fashion. The rectus muscle was in the midline down to the level of the peritoneum. The peritoneum was grasped with 2 Allis. Allis is noted to be free of adherent bowel and entered with Metzenbaum scissors. The peritoneum was further with a combination of gentle traction and blunt and sharp dissection. The patient was placed in Trendelenburg position and the bowel was packed away using moist laparotomy sponges. The uterus was grasped along the cornua of the uterus. Upward traction was applied to facilitate exposure and dissection. The round ligament on the left side was identified, grasped with a Krystina suture, ligated and cut with Bovie. The anterior leaf of the broad ligament was dissected to the midline and the vesicouterine peritoneum. The bladder was dissected off the lower uterine segment and cervix with Metzenbaum scissors. A window was created in the avascular area of the posterior leaf. The ovarian ligament and partial fallopian tube was clamped, cut, and doubly ligated, unable to perform complete salpingectomy due to adhesive disease. The uterine vessels were skeletonized, doubly clamped and cut. The pedicles were suture ligated and good hemostasis was noted. The entire procedure was repeated on the right side. At that time, the cardinal ligament and uterosacral ligaments were sequentially clamped, cut and suture ligated. Curved Z clamps were placed at the angles of the vagina. The cervix was removed from the vaginal cuff with scissors. The vaginal edge of the angle was closed with [id number] 0 Vicryl sutures and tied to the uterosacral ligament to provide support to the vaginal cuff. The vaginal cuff was then closed with [id number] 0 Vicryl sutures and good hemostasis was noted. The pelvis was irrigated with warm sterile saline. Due to extensive intra-abdominal adhesions and adhesions of the bladder to the anterior part of the uterus, decision was made for cystoscopy and methylene blue was given. The patient was taken out of Trendelenburg position. All of the instruments were removed from the abdomen after hemostasis was noted to be adequate. Jose Daniel was placed at the vaginal cuff. The rectus muscle was closed with 2-0 chromic suture. The fascial incision was closed with 2-0 PDS loop suture with good hemostasis. The subcutaneous fat was closed with 2-0 plain suture with good hemostasis. The skin was closed with maggy. The umbilical and right lower quadrant port sites were closed with 3-0 Monocryl with good hemostasis and Dermabond covering. At that time, attention was then turned to the cystoscopy. The Snowden was removed and cystoscope was inserted into the urethra and bladder. Good urethral jets were noted bilaterally. Small amount of bruising noted at the dome of the fundus; however, no lacerations were noted. The cystoscope was removed and the Snowden was replaced. The patient tolerated the procedure well. She was awakened and taken to the recovery room in stable condition. TRANSINT:[id number] Voice Confirmation ID: [id number] DOCUMENT ID: [id number] OPERATIVE REPORT [id number] CLOVIS BOOTH JOSEPH E MD at 0925 CC: [id number] DICTATION DATE: 02/01/19 08 CABLE MAKER: 02/01/19 1145 DIS IN 01/04/19 [facility] [address] [place] [address]
== END 2019-01-04 19:40 | disposition home or self-care (01) | DRG 743 ==
LOC: D.OPS 05:00 → D.PAN 07:00 → D.WS 10:17 → D.LD 10:17 → D.WS 11:48 → D.OPS 11:48 → D.WS 13:51 → D.LD 01-03 13:16
PROVIDERS: Student in an Organized Health Care Education/Training Program; ADMIT Obstetrics & Gynecology; ATTEND Obstetrics & Gynecology
PROC: 0UB60ZZ Excision of Left Fallopian Tube, Open Approach (ICD-10-PCS; 2019-01-02)
PROC: 0TJB8ZZ Inspection of Bladder, Via Natural or Artificial Opening Endoscopic (ICD-10-PCS; 2019-01-02)
PROC: 0UT90ZZ Resection of Uterus, Open Approach (ICD-10-PCS; principal; 2019-01-02 07:00)
PROC: 0DNU0ZZ Release Omentum, Open Approach (ICD-10-PCS; 2019-01-02 07:00)
PROC: 0UT50ZZ Resection of Right Fallopian Tube, Open Approach (ICD-10-PCS; 2019-01-02 07:00)
DX: N80.9 Endometriosis, unspecified (principal); K66.0 Peritoneal adhesions (postprocedural) (postinfection); E11.9 Type 2 diabetes mellitus without complications; I10 Essential (primary) hypertension

== ENCOUNTER 2019-01-16 03:03 | Inpatient (IN) | payer MEDICAID ==
[2019-01-16] VITALS (44 sets, daily range): BP systolic 68–165; BP diastolic 45–107; BMI 34.8
[~2019-01-16] VITALS: Ht 167.6 cm; Wt 103.2 kg
[~2019-01-16 03:03] MED LIST changes: +PERCOCET 5-3251 TAB PO
[2019-01-16] MEDS ORDERED: GLYBURIDE1.25 MG PO (03:13)
[2019-01-16] MEDS ORDERED: MACROBID100 MG PO (03:13)
[2019-01-16 03:57] LABS: APPEARANCE CLOUDY (CLEAR); BILIRUBIN NEGATIVE (NEGATIVE); COLOR YELLOW (YELLOW); GLUCOSE 1000 mg/dL (NEGATIVE); KETONE NEGATIVE (NEGATIVE); NITRITE POSITIVE (NEGATIVE); PROTEIN 2+ mg/dL (NEGATIVE); UROBILINOGEN NORMAL (NORMAL)
[2019-01-16 03:59] LABS: BACTERIA MANY /hpf (NEGATIVE); EPITHELIAL CELLS 0-5 /hpf (0-5); WHITE CELLS - URINE >50 /hpf (NEGATIVE)
[2019-01-16 04:25] LABS: BASOPHILS 0.1 % (0-2); EOSINOPHILS 0.5 % (0-7); HEMATOCRIT 30.7 % (36.0-48.0); HEMOGLOBIN 9.8 g/dL (12-16); IMMATURE GRANULOCYTES 0.4 % (0-5); LYMPHOCYTES 5.9 % (15-50); MCH 27.1 pg (26.0-34.0); MCHC 31.9 g/dL (31.0-37.0); MCV 84.8 fL (80.0-100.0); MEAN PLATELET VOLUME 9.7 fL (7.4-10.4); NEUTROPHILS 88.1 % (40-80); RBC 3.62 10x6/uL (4.00-5.40); RDW 17.1 % (11.5-14.5); WBC 16.4 10x3/uL (4.8-10.8)
[2019-01-16 04:29] LABS: PLATELET COUNT 536 10x3/uL (130-400)
[2019-01-16 04:34] LABS: APTT 27.6 SECONDS (22.8-39.4); INR 1.09 (0.85-1.17); PROTIME 13.6 SECONDS (11.6-15.0)
[2019-01-16 04:52] LABS: ALBUMIN 1.7 g/dL (3.4-5.0); ALKALINE PHOSPHATASE 168 U/L (46-116); ALT (SGPT) 21 U/L (10-68); BILIRUBIN - TOTAL 0.39 mg/dL (0.2-1.3); CALCIUM 7.9 mg/dL (8.5-10.1); CARBON DIOXIDE 27.6 mmol/L (21.0-32.0); CHLORIDE - SERUM 95 mmol/L (98-107); CKMB 0.3 U/L (0.0-3.6); CREATINE KINASE 19 UL (21-215); CREATININE - SERUM 1.1 mg/dL (0.6-1.3); LIPASE 675 U/L (73-393); PROTEIN - SERUM 6.8 g/dL (6.4-8.2); SODIUM 134 mmol/L (136-145); UREA NITROGEN 12 mg/dL (7-18); eGFR NON AFRICAN AMERICAN 57 mL/min (90-120)
[2019-01-16 04:55] LABS: CALC OSMOLALITY 283 mosm/kg (275-300); GLUCOSE 381 mg/dL (74-106)
[2019-01-16 04:57] LABS: POTASSIUM - SERUM 2.3 mmol/L (3.5-5.1)
[2019-01-16 05:05] LABS: TROPONIN-I < 0.017 ng/mL (0.000-0.060)
--- NOTE | 2019-01-16 13:50 | OP ---
PATIENT NAME: CLOVIS BOOTH MEDICAL RECORD: [id number] :75 LOCATION:.[facility] D.2305 ADMISSION DATE:01/16/19 SURGEON: ALEX SOSA MD DATE OF OPERATION: 01/16/2019 SURGEON: Alex Sosa MD TILE DECORATOR: Karen Ham DO and Richard De La Vega MD ANESTHESIA: General anesthesia by Georgette Treviño CRNA. DIAGNOSES: Stellate bladder laceration on the dome of the bladder, necrotizing fasciitis of the rectus fascia, uncontrolled diabetes mellitus type 2. PROCEDURES: Cystoscopy, repair of bladder laceration. FINDINGS: The bladder is widely adherent to the undersurface of the rectus fascia as well as the pelvic side wall. A stellate laceration of the bladder through the dome of the bladder was noted. On cystoscopy, there were single ureteral orifices bilaterally. No bladder tumors were seen. BLOOD LOSS: Minimal. CLINICAL HISTORY: This is a 43-year-old female who had a OSVALDO-BSO 2 weeks ago. On her preoperative testing, she was found to have uncontrolled diabetes mellitus type 2. She was given instructions and diabetes control, but apparently the patient is completely noncompliant. She presented with drainage from her incision in the abdomen. There were also signs of necrosis in the abdominal incision. She was brought on an emergent basis to the OR for treatment of necrotizing fascitis. She is already asleep under general anesthesia. Her abdomen has been reopened through the Pfannenstiel incision that she had. The areas of necrotic rectus fascia have been excised. When they attempted to get into the pelvis as the CT scan was suggestive of involvement of the pelvis, the bladder was entered into by a dissecting finger. At this point, the supervisor sawing and assembly asked for urology consultation. The patient is in stirrups and she has been prepped vaginally in order to allow for cystoscopy also. DESCRIPTION OF PROCEDURE: The patient was already in the operating table with the abdomen open. I used sharp and blunt dissection to completely free the bladder wall from surrounding adhesions to the posterior rectus sheath, free the space of Retzius, free both lateral surfaces of the bladder, and on the dome to free the bladder dome from adhesions to bowel. There is a stellate laceration in the form of a letter Y. The 2 arms of the letter Y extend to the right of the patient and the vertical bar of the letter Y extends to the left lateral portion of the bladder. Stay sutures were placed using 2-0 nylon at full thickness depth at the extent of the laceration. Two layered closure was performed. The first layer used 2-0 Vicryl in a full-thickness running closure. The second layer was of a seromuscular imbrication suture using 2-0 Vicryl. At this point, the Snowden catheter was removed. A 17-Ecuadorean cystoscope was introduced into the bladder. Looking into the bladder, I could see no bladder lesions per se. There were areas of bladder injury from the laceration at the dome of the bladder. As I filled the bladder up with 500 mL of saline, areas of leakage from our repair could be seen. There were 2 such areas. These were closed using rzaipq-ib-vjyye sutures of 2-0 Vicryl. Finally, I refilled the bladder again and this time, the bladder was completely watertight. The OPERATIVE REPORT [id number] LEOBARDO,CLOVIS SWIFT cystoscope was then removed. A 16-Ecuadorean Snowden catheter was then inserted into the bladder and put to bag drainage. The Snowden balloon has 10 cc of sterile water in it. The plan is to leave the Snowden catheter in for 2 weeks and then perform a cystogram to check on bladder healing and whether there is any leakage left. She will also require a Baljinder-Bill drain to prevent accumulation of any urine into the pelvis. Looking in the pelvis, I do not see any signs of necrosis here. It seems very clean. At this point, Dr. De La Vega and Dr. Ham will continue on with their surgery. TRANSINT:[id number] Voice Confirmation ID: [id number] DOCUMENT ID: [id number] ALEX SOSA MD at 1350 CC: [id number] DICTATION DATE: 01/16/19 1244 INSTITUTION LIBRARIAN: 01/16/19 1301 ADM IN [facility] [address] [place] [address]
[2019-01-16 15:33] LABS: CARBON DIOXIDE 22.6 mmol/L (21.0-32.0)
[2019-01-16 15:37] LABS: ANION GAP 16.5 mmol/L (8-16); CREATININE - SERUM 1.4 mg/dL (0.6-1.3); POTASSIUM - SERUM 3.1 mmol/L (3.5-5.1)
[2019-01-16 15:38] LABS: CALCIUM 6.9 mg/dL (8.5-10.1)
--- NOTE | 2019-01-16 18:51 | MORECARE ---
CASE MANAGEMENT DISCHARGE SUMMARY PATIENT: CLOVIS BOOTH UNIT: [id number] ADM DATE: 01/16/19 AGE: 43 : 75 SEX: F ROOM/BED: D.2305 AUTHOR: TOYIN STALLWORTH PHYSICIAN: REFERRING PHYSICIAN: PRISCILA HECK MD DATE OF SERVICE: 01/16/19 Discharge Plan Patient Name: CLOVIS BOOTH [facility] [facility] 1975 Planned Disposition: Anticipated Discharge Date: Discharge Date: Expected LOS: Initial Reviewer: [email or web address] Initial Review Date: 01/16/2019 Generated: 01/16/19 7:51 pm Comments DCP- Discharge Planning Updated by [email or web address]: Teena Davila on 01/16/19 5:[address] CM attempted to see patient for d/c planning assessment. Patient is post-op currently on vent and no family available at this time. CM will continue to follow and assist as needed with discharge planning / needs Patient Name: CLOVIS BOOTH Page [id number] at 1851 All edits/amendments must be made on the electronic document DICTATION DATE: 01/16/191850 FIVE PIECE EXPANSION MAKER HAND: NICOLE 01/16/191850 RPT#: [id number] DC DATE: STATUS: ADM IN [facility] [address] [place] [address] END OF REPORT
[2019-01-17] VITALS (94 sets, daily range): BP systolic 73–107; BP diastolic 43–83
[2019-01-17 07:03] LABS: CARBON DIOXIDE 21.8 mmol/L (21.0-32.0); MAGNESIUM - SERUM 2.2 mg/dL (1.8-2.4); PHOSPHOROUS 6.3 mg/dL (2.5-4.9)
[2019-01-17 07:11] LABS: ANION GAP 16.7 mmol/L (8-16); CREATININE - SERUM 2.2 mg/dL (0.6-1.3); POTASSIUM - SERUM 4.5 mmol/L (3.5-5.1)
[2019-01-17 07:12] LABS: CALCIUM 6.4 mg/dL (8.5-10.1)
[2019-01-17 07:20] LABS: HEMATOCRIT 30.2 % (36.0-48.0); HEMOGLOBIN 8.7 g/dL (12-16); MCH 26.8 pg (26.0-34.0); MCHC 28.8 g/dL (31.0-37.0); MCV 92.9 fL (80.0-100.0); MEAN PLATELET VOLUME 9.7 fL (7.4-10.4); PLATELET COUNT 736 10x3/uL (130-400); RBC 3.25 10x6/uL (4.00-5.40); RDW 19.1 % (11.5-14.5); WBC 27.2 10x3/uL (4.8-10.8)
[2019-01-17 07:27] LABS: LYMPHOCYTES 8 % (15-50); MONOCYTES 4 % (2-11); NEUTROPHILS 75 % (40-80)
[2019-01-17 07:28] LABS: PLATELET ESTIMATE INCREASED
--- NOTE | 2019-01-17 17:42 | MORECARE ---
CASE MANAGEMENT DISCHARGE SUMMARY PATIENT: CLOVIS BOOTH UNIT: [id number] ADM DATE: 01/16/19 AGE: 43 : 75 SEX: F ROOM/BED: D.2305 AUTHOR: TOYIN STALLWORTH PHYSICIAN: REFERRING PHYSICIAN: PRISCILA HECK MD DATE OF SERVICE: 01/17/19 Discharge Plan Patient Name: CLOVIS BOOTH [facility] [facility] 1975 Planned Disposition: Anticipated Discharge Date: Discharge Date: Expected LOS: Initial Reviewer: [email or web address] Initial Review Date: 01/17/2019 Generated: 01/17/19 6:42 pm Comments DCP- Discharge Planning Updated by [email or web address]: Teena Davila on 01/16/19 5:[address] CM attempted to see patient for d/c planning assessment. Patient is post-op currently on vent and no family available at this time. CM will continue to follow and assist as needed with discharge planning / needs Last DP export: 01/16/19 5:51 Patient Name: CLOVIS BOOTH Page [phone] at 1742 All edits/amendments must be made on the electronic document DICTATION DATE: 01/17/191741 PRINTING TABLE WORKER: NICOLE 01/17/191741 RPT#: [id number] DC DATE: STATUS: ADM IN [facility] [address] [place] [address] END OF REPORT
--- NOTE | 2019-01-17 17:51 | MORECARE ---
CASE MANAGEMENT DISCHARGE SUMMARY PATIENT: CLOVIS BOOTH UNIT: [id number] ADM DATE: 01/16/19 AGE: 43 : 75 SEX: F ROOM/BED: D.2305 AUTHOR: TOYIN STALLWORTH PHYSICIAN: REFERRING PHYSICIAN: PRISCILA HECK MD DATE OF SERVICE: 01/17/19 Discharge Plan Patient Name: CLOVIS BOOTH Facility: [facility]:[place] : 1975 Planned Disposition: Anticipated Discharge Date: Discharge Date: Expected LOS: Initial Reviewer: [email or web address] Initial Review Date: 01/17/2019 Generated: 01/17/19 6:50 pm Comments DCP- Discharge Planning Updated by [email or web address]: Teena Davila on 01/16/19 5:[address] CM attempted to see patient for d/c planning assessment. Patient is post-op currently on vent and no family available at this time. CM will continue to follow and assist as needed with discharge planning / needs DCPIA - Discharge Planning Initial Assessment Updated by [email or web address]: Teena Davila on 01/17/19 5:46 pm * Is the patient Alert and Oriented? Yes * How many steps to enter\exit or inside your home? * PCP Ling Nur MD - [place] * Pharmacy [facility] IN [place] * Preadmission Environment Home with Family * ADLs Independent * Equipment None * List name and contact numbers for known caregivers / representatives who currently or will assist patient after discharge: NIELS BOOTH - [facility] - [phone] * Verbal permission to speak to the caregivers and representatives has been obtained from the patient. N/A * Community resources currently utilized None * Additional services required to return to the preadmission environment? No * Can the patient safely return to the preadmission environment? Yes * Has this patient been hospitalized within the prior 30 days at any hospital? Yes Last DP export: 01/17/19 4:42 Patient Name: CLOVIS BOOTH Page [id number] at 1751 All edits/amendments must be made on the electronic document DICTATION DATE: 01/17/191749 CHIEF PAYROLL CLERK: NICOLE 01/17/190 RPT#: [id number] DC DATE: STATUS: ADM IN [facility] [address] [facility] [place] [address] END OF REPORT
--- NOTE | 2019-01-17 18:08 | MORECARE ---
CASE MANAGEMENT DISCHARGE SUMMARY PATIENT: CLOVIS BOOTH UNIT: [id number] ADM DATE: 01/16/19 AGE: 43 : 75 SEX: F ROOM/BED: D.2305 AUTHOR: FEDERICA,DOC PHYSICIAN: REFERRING PHYSICIAN: PRISCILA HECK MD DATE OF SERVICE: 01/17/19 Discharge Plan Patient Name: CLOVIS BOOTH Facility: [facility]:[place] : 1975 Planned Disposition: Anticipated Discharge Date: Discharge Date: Expected LOS: Initial Reviewer: [email or web address] Initial Review Date: 01/17/2019 Generated: 01/17/19 7:07 pm Comments DCP- Discharge Planning Updated by [email or web address]: Teena Davila on 01/17/19 5:[address] Patient Name: CLOVIS BOOTH Admission Status: ER Accout number: [id number] Admission Date: 01-16-2019 : 1975 Admission Diagnosis: Attending: PRISCILA HECK Current LOS: 1 Anticipated DC Date: Planned Disposition: Primary [facility] [employer] [facility] [place] Discharge Planning Comments: CM met with patient's to complete initial dc planning assessment. CM educated (Niels) on the CM role and verbal consent given by patient to complete assessment. Patient lives at home with her where she is independent with her care. At discharge patient plans to return home and feels this is a safe discharge. Niels states they live in a [address] [address] CM discussed availability of home health, rehab services, and medical equipment. Niels is uncertain of what her discharge needs may be since patient has surgery scheduled tomorrow and Monday. Patient will most likely need HH and potentially rehab. Patient is still on vent sedated at this time. CM will continue to follow and will assist as needed with dc plans/needs. Community Support Worker: Teena Davila DCP- Discharge Planning Updated by [email or web address]: Teena Davila on 01/16/19 5:[address] CM attempted to see patient for d/c planning assessment. Patient is post-op currently on vent and no family available at this time. CM will continue to follow and assist as needed with discharge planning / needs DCPIA - Discharge Planning Initial Assessment Updated by [email or web address]: Teena Davila on 01/17/19 5:46 pm * Is the patient Alert and Oriented? Yes * How many steps to enter\exit or inside your home? * PCP Ling Nur MD - [place] * Pharmacy [facility] IN [place] * Preadmission Environment Home with Family * ADLs Independent * Equipment None * List name and contact numbers for known caregivers / representatives who currently or will assist patient after discharge: NILES BOOTH - [facility] - [phone] * Verbal permission to speak to the caregivers and representatives has been obtained from the patient. N/A * Community resources currently utilized None * Additional services required to return to the preadmission environment? No * Can the patient safely return to the preadmission environment? Yes * Has this patient been hospitalized within the prior 30 days at any hospital? Yes Last DP export: 01/17/19 4:51 Patient Name: CLOVIS BOOTH Page [id number] at 1808 All edits/amendments must be made on the electronic document DICTATION DATE: 01/17/191806 HULL INSPECTOR: NICOLE 01/17/191806 RPT#: [id number] DC DATE: STATUS: ADM IN [facility] [address] [place] [address] END OF REPORT
[2019-01-18] VITALS (77 sets, daily range): BP systolic 82–136; BP diastolic 29–82; Ht 167.6 cm; Wt 103.2 kg
[2019-01-18 05:49] LABS: ALBUMIN 1.5 g/dL (3.4-5.0); BILIRUBIN - TOTAL 0.28 mg/dL (0.2-1.3); CARBON DIOXIDE 18.9 mmol/L (21.0-32.0); POTASSIUM - SERUM 3.9 mmol/L (3.5-5.1)
[2019-01-18 06:33] LABS: CREATININE - URINE 183.6 mg/dL (30-125)
[2019-01-18 06:50] LABS: BASOPHILS 0.2 % (0-2); EOSINOPHILS 0.1 % (0-7); HEMATOCRIT 29.3 % (36.0-48.0); HEMOGLOBIN 8.3 g/dL (12-16); IMMATURE GRANULOCYTES 0.9 % (0-5); LYMPHOCYTES 5.9 % (15-50); MCH 26.7 pg (26.0-34.0); MCHC 28.3 g/dL (31.0-37.0); MCV 94.2 fL (80.0-100.0); MEAN PLATELET VOLUME 9.5 fL (7.4-10.4); MONOCYTES 5.8 % (2-11); NEUTROPHILS 87.1 % (40-80); PLATELET COUNT 489 10x3/uL (130-400); RBC 3.11 10x6/uL (4.00-5.40); RDW 20.1 % (11.5-14.5); WBC 20.8 10x3/uL (4.8-10.8)
[2019-01-18 06:55] LABS: CREATININE - SERUM 4.1 mg/dL (0.6-1.3)
[2019-01-18 06:55] LABS: PROTEIN - URINE 506.3 mg/dL (0.0-11.9)
[2019-01-18 06:56] LABS: CALCIUM 5.8 mg/dL (8.5-10.1)
[2019-01-18 09:14] LABS: APPEARANCE TURBID (CLEAR); COLOR DK YELLOW (YELLOW)
[2019-01-18 09:17] LABS: BILIRUBIN NEGATIVE (NEGATIVE); GLUCOSE NEGATIVE (NEGATIVE); KETONE NEGATIVE (NEGATIVE); NITRITE NEGATIVE (NEGATIVE); PROTEIN 2+ mg/dL (NEGATIVE); UROBILINOGEN NORMAL (NORMAL)
[2019-01-18 09:38] LABS: BACTERIA MODERATE /hpf (NEGATIVE); EPITHELIAL CELLS 0-5 /hpf (0-5)
[2019-01-18 09:39] LABS: YEAST >1+ /hpf (NONE SEEN)
--- NOTE | 2019-01-18 18:59 | MORECARE ---
CASE MANAGEMENT DISCHARGE SUMMARY PATIENT: CLOVIS BOOTH UNIT: [id number] ADM DATE: 01/16/19 AGE: 43 : 75 SEX: F ROOM/BED: D.2305 AUTHOR: FEDERICA,DOC PHYSICIAN: REFERRING PHYSICIAN: PRISCILA HECK MD DATE OF SERVICE: 01/18/19 Discharge Plan Patient Name: CLOVIS BOOTH Facility: [facility]:[place] : 1975 Planned Disposition: Anticipated Discharge Date: Discharge Date: Expected LOS: Initial Reviewer: [email or web address] Initial Review Date: 01/17/2019 Generated: 01/18/19 7:58 pm Comments DCP- Discharge Planning Updated by [email or web address]: Teena Davila on 01/18/19 5:[address] CM received notice that patient is needing transfer to another facility for infectious disease and CCRP. Dr. Ham had contacted transfer center. Nursing faxed over facesheet to transfer center. CM was notified that [facility] has accepted patient but they don't have bed availability. CM has copied chart and got disk of images for when bed is available. Nursing stated that patient will need air transport once bed availability. Will need to set-up survival flight for transfer. CM will continue to follow and assist as needed with discharge planning / needs. DCP- Discharge Planning Updated by [email or web address]: Teena Davila on 01/17/19 5:[address] Patient Name: CLOVIS BOOTH Admission Status: ER Accout number: [id number] Admission Date: 01-16-2019 : 1975 Admission Diagnosis: Attending: PRISCILA HECK Current LOS: 1 Anticipated DC Date: Planned Disposition: Primary Insurance: [employer] OPTIONS [place]A Discharge Planning Comments: CM met with patient's to complete initial dc planning assessment. CM educated (Niels) on the CM role and verbal consent given by patient to complete assessment. Patient lives at home with her where she is independent with her care. At discharge patient plans to return home and feels this is a safe discharge. Niels states they live in a camper @ [address] [place] [address] CM discussed availability of home health, rehab services, and medical equipment. Niels is uncertain of what her discharge needs may be since patient has surgery scheduled tomorrow and Monday. Patient will most likely need HH and potentially rehab. Patient is still on vent sedated at this time. CM will continue to follow and will assist as needed with dc plans/needs. Pig Machine Operator: Teena Davila DCP- Discharge Planning Updated by [email or web address]: Teena Davila on 01/16/19 5:[address] CM attempted to see patient for d/c planning assessment. Patient is post-op currently on vent and no family available at this time. CM will continue to follow and assist as needed with discharge planning / needs DCPIA - Discharge Planning Initial Assessment Updated by [email or web address]: Teena Davila on 01/17/19 5:46 pm * Is the patient Alert and Oriented? Yes * How many steps to enter\exit or inside your home? * PCP Ling Nur MD - [place] * Pharmacy [facility] IN [place] * Preadmission Environment Home with Family * ADLs Independent * Equipment None * List name and contact numbers for known caregivers / representatives who currently or will assist patient after discharge: NIELS BOOTH - [facility] - [phone] * Verbal permission to speak to the caregivers and representatives has been obtained from the patient. N/A * Community resources currently utilized None * Additional services required to return to the preadmission environment? No * Can the patient safely return to the preadmission environment? Yes * Has this patient been hospitalized within the prior 30 days at any hospital? Yes Last DP export: 01/17/19 5:08 Patient Name: CLOVIS BOOTH Page 12907 at 1859 All edits/amendments must be made on the electronic document DICTATION DATE: 01/18/191857 KEY MAKER: NICOLE 01/18/191857 RPT#: [id number] DC DATE: STATUS: ADM IN [facility] [address] [place] [address] END OF REPORT
--- NOTE | 2019-01-21 08:44 | MORECARE ---
CASE MANAGEMENT DISCHARGE SUMMARY PATIENT: CLOVIS BOOTH UNIT: [id number] ADM DATE: 01/16/19 AGE: 43 : 75 SEX: F ROOM/BED: D.2305 AUTHOR: FEDERICA,DOC PHYSICIAN: REFERRING PHYSICIAN: PRISCILA HECK MD DATE OF SERVICE: 01/21/19 Discharge Plan Patient Name: CLOVIS BOOTH Facility: [facility]:[place] : 1975 Planned Disposition: Anticipated Discharge Date: Discharge Date: 01/18/2019 Expected LOS: Initial Reviewer: [email or web address] Initial Review Date: 01/17/2019 Generated: 01/21/19 9:43 am Comments DCP- Discharge Planning Updated by [email or web address]: Teena Davila on 01/18/19 5:[address] CM received notice that patient is needing transfer to another facility for infectious disease and CCRP. Dr. Ham had contacted transfer center. Nursing faxed over facesheet to transfer center. CM was notified that [facility] has accepted patient but they don't have bed availability. CM has copied chart and got disk of images for when bed is available. Nursing stated that patient will need air transport once bed availability. Will need to set-up survival flight for transfer. CM will continue to follow and assist as needed with discharge planning / needs. DCP- Discharge Planning Updated by [email or web address]: Teena Davila on 01/17/19 5:[address] Patient Name: CLOVIS BOOTH Admission Status: ER Accout number: [id number] Admission Date: 01-16-2019 : 1975 Admission Diagnosis: Attending: PRISCILA HECK Current LOS: 1 Anticipated DC Date: Planned Disposition: Primary Insurance: [employer] PR[employer] OPTIONS [place] Discharge Planning Comments: CM met with patient's to complete initial dc planning assessment. CM educated (Niels) on the CM role and verbal consent given by patient to complete assessment. Patient lives at home with her where she is independent with her care. At discharge patient plans to return home and feels this is a safe discharge. Niels states they live in a camper @ [address] [place] [address] CM discussed availability of home health, rehab services, and medical equipment. Niels is uncertain of what her discharge needs may be since patient has surgery scheduled tomorrow and Monday. Patient will most likely need HH and potentially rehab. Patient is still on vent sedated at this time. CM will continue to follow and will assist as needed with dc plans/needs. Production Team Leader: Teena Davila DCP- Discharge Planning Updated by [email or web address]: Teena Davila on 01/16/19 5:[address] CM attempted to see patient for d/c planning assessment. Patient is post-op currently on vent and no family available at this time. CM will continue to follow and assist as needed with discharge planning / needs DCPIA - Discharge Planning Initial Assessment Updated by [email or web address]: Teena Davila on 01/17/19 5:46 pm * Is the patient Alert and Oriented? Yes * How many steps to enter\exit or inside your home? * PCP Ling Nur MD - [place] * [facility] [place] * Preadmission Environment Home with Family * ADLs Independent * Equipment None * List name and contact numbers for known caregivers / representatives who currently or will assist patient after discharge: NIELS BOOTH - [facility] - [phone] * Verbal permission to speak to the caregivers and representatives has been obtained from the patient. N/A * Community resources currently utilized None * Additional services required to return to the preadmission environment? No * Can the patient safely return to the preadmission environment? Yes * Has this patient been hospitalized within the prior 30 days at any hospital? Yes Last DP export: 01/18/19 5:59 Patient Name: CLOVIS BOOTH Page 16136 at 0844 All edits/amendments must be made on the electronic document DICTATION DATE: 01/21/19842 CREW SUPERVISOR: NICOLE 01/21/19842 RPT#: [id number] DC DATE:01/18/19 STATUS: DIS IN [facility] [address] [place] [address] END OF REPORT
[2019-01-25 19:08] LABS: AEROBE ID Final report (())
[2019-02-06 15:10] LABS: AEROBE ID Final report (())
--- NOTE | 2019-02-08 12:26 | OP ---
PATIENT NAME: CLOVIS BOOTH MEDICAL RECORD: [id number] :75 LOCATION:[facility] D.2305 ADMISSION DATE:01/16/19 SURGEON: ROMERO INMAN DO DATE OF OPERATION: 01/16/2019 PREOPERATIVE DIAGNOSIS: Suspected necrotizing fasciitis, pelvic abscess. POSTOPERATIVE DIAGNOSES: Suspected necrotizing fasciitis, pelvic abscess plus intra-abdominal adhesions. PRIMARY SURGEON: Romero Inman DO INTRAOPERATIVE CONSULTANTS: Dr. Wood and Dr. Santos MATERIAL HANDLER 2ND SHIFT SURGEON: Dr. De La Vega ANESTHESIA: Georgette Treviño CRNA. PROCEDURES: Wound exploration, pelvic washout, wound debridement, repair of cystotomy, cystoscopy, and placement of GITA drain. FINDINGS: Intact vaginal cuff. Extensive amount of tissue noted on skin and in subcutaneous fat. Dusky fascia. Purulent fluid in the abdomen. Extensive intra-abdominal adhesions and adhesions of bladder to posterior rectus muscle. SPECIMENS: Portions of skin, subcutaneous fat, and fascia. ESTIMATED BLOOD LOSS: 300 cc. IV FLUIDS: 2400 cc. URINE OUTPUT: 400 cc prior to cystotomy. COMPLICATIONS: Upon entering the abdomen, cystotomy noted. Urology called and bladder dissected and repaired. Cystoscopy was performed to ensure no leaks. DESCRIPTION OF PROCEDURE: The risks, benefits, alternatives, and indications of the procedure were discussed with the patient and she voiced understanding of the procedure and signed the consent. She was taken to the OR, where general anesthesia was administered and found to be adequate. She was placed in the dorsal lithotomy position. She was prepped and draped in a normal sterile fashion. Exam under anesthesia revealed purulent discharge from the vaginal cuff; however, vaginal cuff appeared intact. A Snowden was placed. Attention was then turned to the abdomen and gloves were changed. The previous Pfannenstiel incision was opened with the scalpel. At that time, copious amounts of purulent and serous fluid came out of the incision. Portions of the skin were noted to be dusky and as well as portions of the subcutaneous fat. These portions were excised using the scalpel and sent to pathology. Wound cultures were taken. Extensive debridement of the subcutaneous fat was performed until healthy tissue with blood supply was noted. The previous fascial incision was opened with scissors and dusky and stacy fascia was noted. These portions of the fascia were removed with Melendez scissors. The rectus muscle was down to the level of the peritoneum. Purulent discharge from the intra-abdominal cavity was noted. The rectus muscle and fascia was opened with blunt dissection. At OPERATIVE REPORT [id number] LEOBARDOCLOVIS JENIFFER that time, the bladder was noted to be adhesed to the posterior portion of the rectus muscle and a bladder laceration was noted. Urology was consulted and repaired the bladder in multiple layer closure and a cystoscopy was performed to ensure no bladder leaks. That procedure was dictated separately. The pelvis was noted to have multiple intra-abdominal adhesions, adhesions of the bowel to the bladder as well as the rectus were noted and were lysed. Copious irrigation of the pelvis was performed. The pelvis was then washed out with antibiotic fluid and suction irrigated. The rectus muscle was closed with 0 Vicryl suture. At that time, general surgery was consulted for recommendations regarding closure. Due to extensive debridement and infection, recommendations at that time were to not close the fascia and instead to pack the abdomen with laps soaked in Dakin solution. Prior to closing the rectus muscle, a GITA drain was placed in the pelvis. The rectus muscle was then closed with 0 Vicryl suture and general surgery was consulted regarding recommendations for closure. Recommendations were to not close the fascia or the subcutaneous fat due to infection and to instead pack the abdomen with lap pad soaked in Dakin solution. The 14 lap pads soaked in Dakin solution were packed into the abdomen above the rectus muscle and Ioban was placed. The patient will be taken back to the OR in 48 hours to assess infection for possible repeat debridement for wound VAC placement. The patient tolerated the procedure well. She will remain intubated and sedated until her next procedure. All needle, lap, sponge, and instrument counts were correct times 2. She was taken to the recovery room in stable condition. TRANSINT:[id number] Voice Confirmation ID: [id number] DOCUMENT ID: [id number] ROMERO INMAN DO at 1226 CC: [id number] DICTATION DATE: 01/17/191701 SENIOR GL ACCOUNTANT: 01/17/192341 DIS IN 01/18/19 [facility] [address] [place] [address]
== END 2019-01-18 20:30 | disposition short-term general hospital (02) | DRG 853 ==
LOC: D.ER 03:03 → D.M3 06:36 → D.LD 06:36 → D.ICU 06:36 → D.M3 06:37 → D.LD 06:37 → D.M3 06:37 → D.LD 12:08 → D.SDCHOLD 12:17 → D.LD 12:17 → D.ICU 13:30
PROVIDERS: Family Medicine; Internal Medicine; Internal Medicine Pulmonary Disease; Student in an Organized Health Care Education/Training Program; Urology; ADMIT Obstetrics & Gynecology; ATTEND Obstetrics & Gynecology
PROC: 0TQB8ZZ Repair Bladder, Via Natural or Artificial Opening Endoscopic (ICD-10-PCS; principal; 2019-01-16 09:30)
PROC: 0JBC0ZZ Excision of Pelvic Region Subcutaneous Tissue and Fascia, Open Approach (ICD-10-PCS; 2019-01-16 09:30)
DX: A41.50 Gram-negative sepsis, unspecified (principal); M72.6 Necrotizing fasciitis; N17.0 Acute kidney failure with tubular necrosis; R65.21 Severe sepsis with septic shock; N39.0 Urinary tract infection, site not specified; L03.311 Cellulitis of abdominal wall; E66.9 Obesity, unspecified; I10 Essential (primary) hypertension; G89.29 Other chronic pain; E87.6 Hypokalemia; Z68.33 Body mass index [BMI] 33.0-33.9, adult; F17.200 Nicotine dependence, unspecified, uncomplicated; E11.21 Type 2 diabetes mellitus with diabetic nephropathy